=== PATIENT | male | born 1980 | race Caucasian/White ===

== ENCOUNTER 2018-03-23 07:51 | Emergency (ER) | payer MEDICAID ==
[2018-03-23 08:37] LABS: BASO % 0.2 % (0-6); EOS % 0.1 % (0-6); HEMATOCRIT 43.7 % (42.0-52.0); HEMOGLOBIN 14.4 gm/dl (14.0-18.0); LYMPH % 7.7 % (16-45); MEAN CELL VOLUME 87.8 fl (81-97); MEAN CORPUSCULAR HEMOGLOBIN 28.9 pg (27-33); MEAN PLATELET VOLUME 10.1 fl (7.4-10.4); PLATELET COUNT 353 K/uL (130-400); RED BLOOD COUNT 4.98 M/uL (4.40-5.70); RED CELL DISTRIBUTION WIDTH 12.6 % (11.5-14.5); WHITE BLOOD COUNT W/O DIFF 10.1 K/uL (4.2-12.2)
[2018-03-23 08:55] LABS: URINE APPEARANCE CLEAR; URINE BILIRUBIN NEGATIVE (NEGATIVE); URINE BLOOD NEGATIVE (NEGATIVE); URINE COLOR YELLOW; URINE GLUCOSE (UA) NEGATIVE (NEGATIVE); URINE KETONE NEGATIVE (NEGATIVE); URINE LEUKOCYTE ESTERASE NEGATIVE (NEGATIVE); URINE NITRITE NEGATIVE (NEGATIVE); URINE PROTEIN NEGATIVE (NEGATIVE); URINE UROBILINOGEN 0.2 E.U./dL (0.20 - 1.00)
[2018-03-23 08:57] LABS: AMPHETAMINE SCREEN URINE NOT DETECTED; BARBITURATE SCREEN URINE NOT DETECTED; BENZODIAZEPINE SCREEN URINE NOT DETECTED; COCAINE SCREEN URINE NOT DETECTED; METHADONE SCREEN URINE NOT DETECTED; METHAMPHETAMINE SCREEN NOT DETECTED; OPIATE SCREEN URINE NOT DETECTED; OXYCODONE SCREEN URINE NOT DETECTED; PHENCYCLIDINE SCREEN URINE NOT DETECTED; PROPOXYPHENE SCREEN URINE NOT DETECTED; THC SCREEN URINE NOT DETECTED; TRICYCLIC ANTIDEPRESSANT SCRN NOT DETECTED
[2018-03-23 09:03] LABS: BLOOD UREA NITROGEN 18 mg/dL (6-20); CREATININE 0.9 mg/dL (0.7-1.2); EST GLOMERULAR FILTRATION RATE > 60 mL/min
[2018-03-23 09:05] LABS: PLATELET ESTIMATE NORMAL (NORMAL)
[2018-03-23 09:06] LABS: GLUCOSE,RANDOM 111 mg/dL (74-109)
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
--- NOTE | 2018-03-24 12:14 | RADIOLOGY REPORT ---
DATE: 03/23/2018. EXAM: LUMBAR SPINE. HISTORY: Attempted hanging. TECHNIQUE: Lumbar spine, four views. COMPARISON: None. FINDINGS: There are the typical five lumbar vertebral segments. The alignment and curvature are unremarkable with no fracture or spondylolisthesis. Small degenerative endplate spurs are present. There is contrast identified in the collecting system from the recent CT scan. There is no destructive or erosive change. IMPRESSION: MILD ARTHRITIC CHANGES IN THE LUMBAR SPINE. LUMBAR SPINE OTHERWISE UNREMARKABLE WITH NO FRACTURE. JOB NUMBER: [id number] [facility]
--- NOTE | 2018-03-24 12:18 | CT SCAN REPORT ---
DATE: 03/23/2018. EXAM: HEAD CT SCAN. HISTORY: Attempted hanging. TECHNIQUE: Noncontrast head CT. COMPARISON: None. FINDINGS: The ventricles and subarachnoid spaces are unremarkable. No mass or mass effect. No intra- or extra-axial hemorrhage. No CT evidence for large, acute territorial infarct. There is a polyp or retention cyst in the left maxillary sinus. This measures about 2.0 cm in diameter. IMPRESSION: 1. NO MASS, HEMORRHAGE, OR ACUTE INTRACRANIAL PROCESS. 2. A 2.0 CM POLYP OR RETENTION CYST IN THE LEFT MAXILLARY SINUS. JOB NUMBER: [id number] [facility]
--- NOTE | 2018-03-24 12:23 | CT SCAN REPORT ---
DATE: 03/23/2018. EXAM: CT OF THE CERVICAL SOFT TISSUES. HISTORY: Attempted hanging. TECHNIQUE: CT of the cervical soft tissues performed following intravenous contrast administration. A total of 90 mL of Isovue 300 contrast used for this examination. COMPARISON: None. FINDINGS: There is a minimally displaced fracture of the right superior thyroid cartilage. The hyoid bone is unremarkable. The parotid and submandibular glands are unremarkable. No airway narrowing or compromise. The thyroid gland is unremarkable. The upper lungs and upper mediastinum are unremarkable. No enlarged cervical lymph nodes. No gross vascular abnormality. No cervical spine fracture identified. No prevertebral soft tissue swelling. IMPRESSION: 1. MINIMALLY DISPLACED FRACTURE OF THE RIGHT SUPERIOR ASPECT OF THE THYROID CARTILAGE WITHOUT EVIDENCE FOR AIRWAY COMPROMISE. 2. CT OF THE CERVICAL SOFT TISSUES OTHERWISE UNREMARKABLE. [facility]: [id number] [facility]
== END 2018-03-23 10:44 | disposition short-term general hospital (02) ==
LOC: ER 07:51
DX: T71.162A Asphyxiation due to hanging, intentional self-harm, initial encounter (principal); S12.8XXA Fracture of other parts of neck, initial encounter; X83.8XXA Intentional self-harm by other specified means, initial encounter; F17.210 Nicotine dependence, cigarettes, uncomplicated
CPT/HCPCS: 99285 ×2; 80048; 81003; 84443; 80305; 85027; 72100; 70450; 70491; G0480; Q9967; 80320